=== PATIENT | female | born 1995 | race Caucasian/White ===

== ENCOUNTER 2025-02-20 13:29 | Outpatient (CLI) | payer BC, SELFPAY | END 2025-02-20 13:30 | disposition home or self-care (01) | LOC: NFLDREF 02-21 08:09 | PROVIDERS: PCP Nurse Practitioner Family; Referring Provider Nurse Practitioner Family; Visit Provider Physician Assistant | DX: R10.9 Unspecified abdominal pain (principal); R82.90 Unspecified abnormal findings in urine | CPT/HCPCS: 87086 ==